=== PATIENT | male | born 1990 | race African-American/Black ===

== ENCOUNTER 2017-04-08 18:53 | Emergency (ER) | payer SELFPAY ==
[2017-04-08 19:49] LABS: URINE SOURCE CLEAN CATCH
[2017-04-08 19:55] LABS: URINE APPEARANCE CLEAR; URINE BILIRUBIN NEG (NEG); URINE BLOOD NEG (NEG); URINE COLOR YELLOW; URINE GLUCOSE NEG (NEG); URINE KETONE NEG (NEG); URINE LEUKOCYTE ESTERASE 1+ (NEG); URINE NITRATE NEG (NEG); URINE PH 8.5 (5-8); URINE PROTEIN NEG (NEG); URINE SPECIFIC GRAVITY 1.023 (1.003-1.035)
[2017-04-08 19:57] LABS: CULTURE INDICATED? YES; URBCS1 AUWI 0-2 /[HPF] (0-2); URINE BACTERIA AUWI NEG (NEGATIVE); URINE SQUAMOUS EPITHELIAL CELL NONE SEEN /[HPF]; UWBCS1 AUWI 25-50 (0-5)
[2017-04-08 20:10] LABS: U HYALINE CASTS AUWI 0-2 /[LPF]
[2017-04-08 20:11] LABS: URINE TRICHOMONAS NEGATIVE
[2017-04-12 11:19] LABS: CHLAMYDIA TRACH Not Detected (Not Detected); N GONOR Not Detected (Not Detected)
== END 2017-04-08 21:00 | disposition home or self-care (01) ==
LOC: CED 18:53
PROVIDERS: Nurse Practitioner
DX: Z20.2 Contact with and (suspected) exposure to infections with a predominantly sexual mode of transmission (principal); N34.1 Nonspecific urethritis
CPT/HCPCS: 81003; 87086; 87491; 87591; 96372; 99283; J0696

== ENCOUNTER 2017-04-14 19:12 | Emergency (ER) | payer SELFPAY | END 2017-04-14 20:25 | disposition home or self-care (01) | LOC: CFTX 19:12 → CED 19:12 → CFTX 19:34 | DX: N34.2 Other urethritis (principal) | CPT/HCPCS: 96372; 99283; J0696 ==